=== PATIENT | female | born 1965 | race Caucasian/White ===

== ENCOUNTER 2020-06-12 12:21 | Emergency (ER) | payer OTHER, MEDICAID ==
[~2020-06-12] VITALS: Ht 157.5 cm; Wt 68.2 kg
[2020-06-12 12:23] VITALS: BP 156/96; Ht 157.5 cm; Wt 68.2 kg
[2020-06-12] MEDS ORDERED: ELIQUIS5 MG PO (12:30)
[2020-06-12] MEDS ORDERED: BUSPAR5 MG PO (12:31)
[2020-06-12 12:55] LABS: CALC OSMOLALITY 277 mosm/kg (275-300); CALCIUM 8.9 mg/dL (8.5-10.1); CARBON DIOXIDE 22.3 mmol/L (21.0-32.0); CHLORIDE - SERUM 101 mmol/L (98-107); CREATININE - SERUM 0.9 mg/dL (0.6-1.3); GLUCOSE 135 mg/dL (74-106); POTASSIUM - SERUM 3.4 mmol/L (3.5-5.1); SODIUM 138 mmol/L (136-145); UREA NITROGEN 13 mg/dL (7-18); eGFR NON AFRICAN AMERICAN 69 mL/min (90-120)
[2020-06-12 13:08] LABS: BASOPHILS 0.1 % (0-2); EOSINOPHILS 0.1 % (0-7); HEMATOCRIT 36.6 % (36.0-48.0); IMMATURE GRANULOCYTES 0.3 % (0-5); LYMPHOCYTE ABS# 0.83 10x3/uL (1.18-3.74); LYMPHOCYTES 8.3 % (15-50); MCH 31.1 pg (26.0-34.0); MCHC 32.8 g/dL (31.0-37.0); MCV 94.8 fL (80.0-100.0); MEAN PLATELET VOLUME 11.3 fL (7.4-10.4); MONOCYTES 10.1 % (2-11); NEUTROPHIL ABS# 8.13 10x3/uL (1.56-6.13); NEUTROPHILS 81.1 % (40-80); RBC 3.86 10x6/uL (4.00-5.40); RDW 13.7 % (11.5-14.5)
[2020-06-12 13:10] LABS: ALBUMIN 3.1 g/dL (3.4-5.0); ALKALINE PHOSPHATASE 145 U/L (30-120); ALT (SGPT) 27 U/L (10-68); BILIRUBIN - TOTAL 2.24 mg/dL (0.2-1.3); C-REACTIVE PROTEIN 10.3 mg/dL (0.0-0.9); CREATINE KINASE 103 UL (21-215); LIPASE 72 U/L (73-393); MAGNESIUM - SERUM 1.6 mg/dL (1.8-2.4); PRO BNP 812 pg/mL (0-125); PROTEIN - SERUM 7.9 g/dL (6.4-8.2); THYROID STIMULATING HORMONE 0.97 uIU/mL (0.36-3.74); TROPONIN-I < 0.017 ng/mL (0.000-0.060)
[2020-06-12 13:21] LABS: BILIRUBIN NEGATIVE (NEGATIVE); KETONE SMALL mg/dL (NEGATIVE); NITRITE NEGATIVE (NEGATIVE); UROBILINOGEN NORMAL mg/dL (< 2)
[2020-06-12 13:25] LABS: UDS - AMPHET NEGATIVE QUAL (NEGATIVE); UDS - BARB NEGATIVE QUAL (NEGATIVE); UDS - BENZO POSITIVE QUAL (NEGATIVE); UDS - COCAINE NEGATIVE QUAL (NEGATIVE); UDS - OPIATE POSITIVE QUAL (NEGATIVE); UDS - PCP NEGATIVE QUAL (NEGATIVE); UDS - THC POSITIVE QUAL (NEGATIVE)
[2020-06-12 13:29] LABS: APTT 32.1 SECONDS (22.8-39.4); INR 1.89 (0.85-1.17); PROTIME 20.1 SECONDS (11.6-15.0)
[2020-06-12 13:33] LABS: BACTERIA FEW HPF (NONE SEEN); SQUAMOUS EPITHELIAL 0-5 HPF (0-4); WHITE CELLS - URINE 0-5 HPF (0-4)
[2020-06-12 13:34] LABS: PLATELET COUNT 151 10x3/uL (130-400)
[2020-06-12 13:34] LABS: AMORPHOUS SEDIMENT <1+ LPF (NONE SEEN)
[2020-06-12 13:41] LABS: D-DIMER-QUANTITATIVE 7.28 ug/mLFEU (0.20-0.54)
[2020-06-12] MEDS ORDERED: MORPHINE IMMEDI15 MG PO (14:59)
[2020-06-12] MEDS ORDERED: ZOFRAN ODT4 MG/UDTAB PO (14:59)
== END 2020-06-12 15:35 | disposition home or self-care (01) ==
LOC: D.ER 12:21
PROVIDERS: Family Medicine
DX: K92.0 Hematemesis (principal); I82.0 Budd-Chiari syndrome; C78.00 Secondary malignant neoplasm of unspecified lung; Z79.01 Long term (current) use of anticoagulants